=== PATIENT | male | born 1990 | race African-American/Black ===

== ENCOUNTER 2018-12-18 10:12 | Emergency (ER) | payer OTHER ==
[~2018-12-18] VITALS: Ht 177.8 cm; Wt 104.3 kg
[2018-12-18] MEDS ORDERED: HUMIRA20 MG/0.4 (10:35)
[2018-12-18] MEDS ORDERED: HUMIRA PEN40 MG/0.2 (10:35)
== END 2018-12-18 12:59 | disposition home or self-care (01) ==
LOC: ER 10:12
DX: L02.415 Cutaneous abscess of right lower limb (principal)

== ENCOUNTER 2019-10-14 11:57 | Emergency (ER) | payer OTHER ==
[~2019-10-14] VITALS: Ht 180.3 cm; Wt 104.3 kg
[~2019-10-14 11:57] MED LIST: HUMIRA PEN40 MG/0.2; HUMIRA20 MG/0.4
[2019-10-14] MEDS ORDERED: HUMIRA(CF)40 MG/0.1 (12:20)
[2019-10-14] MEDS ORDERED: KETO10TA2 PO (14:40)
[2019-10-14] MEDS ORDERED: INTESTINEX680 M1 PO (14:40)
[2019-10-14] MEDS ORDERED: CLEOCIN HCL300 MG PO (14:40)
== END 2019-10-14 15:42 | disposition home or self-care (01) ==
LOC: ER 11:57 → EDBD 12:11 → ER 12:11
DX: L02.212 Cutaneous abscess of back [any part, except buttock and flank] (principal)

== ENCOUNTER → 2020-06-02 | Emergency (ER) | payer OTHER ==
[~2020-06-02] VITALS: Ht 172.7 cm; Wt 95.3 kg
[~2020-06-02] MED LIST changes: +CLEOCIN HCL300 MG PO; +HUMIRA PEN40 MG/0.8; +HUMIRA(CF)40 MG/0.1; +INTESTINEX680 M1 PO; +KETO10TA2 PO
== END | disposition left against medical advice (07) ==
LOC: ER 18:34
DX: L73.2 Hidradenitis suppurativa (principal)